=== PATIENT | female | born 1995 | race African-American/Black ===

== ENCOUNTER 2021-10-30 13:53 | Emergency (ER) | payer OTHER ==
[~2021-10-30] VITALS: Ht 165.1 cm; Wt 126.1 kg
[2021-10-30 13:54] VITALS: BP 160/107
[2021-10-30 14:16] LABS: HCG,QUAL RESULT NEGATIVE (NEGATIVE)
[2021-10-30 14:18] LABS: BILIRUBIN,URINE Negative (NEGATIVE); COLOR,URINE Yellow (YELLOW); GLUCOSE, URINE (UA) Negative (NEGATIVE); KETONES,URINE Trace mg/dL (NEGATIVE); LEUKOCYTE ESTERASE ,URINE Negative (NEGATIVE); NITRATE,URINE Negative (NEGATIVE); OCCULT BLOOD,URINE Negative (NEGATIVE); PH,URINE 5.5 (5.0-8.0); PROTEIN,URINE Negative (NEGATIVE)
[2021-10-30 14:32] LABS: APPEARANCE,URINE CLEAR (CLEAR)
== END 2021-10-30 15:53 | disposition home or self-care (01) ==
LOC: EDH 13:53
DX: R35.0 Frequency of micturition (principal); R03.0 Elevated blood-pressure reading, without diagnosis of hypertension; R30.0 Dysuria; E66.9 Obesity, unspecified; Z68.42 Body mass index [BMI] 45.0-49.9, adult
CPT/HCPCS: 81003; 81025